=== PATIENT | male | born 1975 | race African-American/Black ===

== ENCOUNTER 2020-04-25 17:32 | Emergency (ER) | payer SELFPAY ==
[2020-04-25 17:46] VITALS: BP 141/87; PULSE 95; TEMP 98.6; BMI 28.8
[2020-04-25] MEDS ORDERED: KETOROLAC TROMETHAMINE 30 MG/1 ML VIAL IM ONE (18:37)
[2020-04-25] MEDS ORDERED: KETOROLAC TROMETHAMINE 30 MG/1 ML VIAL ONE (18:43)
== END 2020-04-25 19:41 | disposition home or self-care (01) ==
LOC: JERFT 17:32
PROC: 3E023GC Introduction of Other Therapeutic Substance into Muscle, Percutaneous Approach (ICD-10-PCS; principal; 2020-04-25)
DX: M25.561 Pain in right knee (principal)
CPT/HCPCS: 73562-TC-RT-FY; 99284-25

== ENCOUNTER 2020-11-14 12:04 | Emergency (ER) | payer OTHER ==
[2020-11-14 12:17] VITALS: BP 133/87; PULSE 87; TEMP 98.9
[2020-11-14] MEDS ORDERED: IBUPROFEN 400 MG TABLET (FP) PO ONE ×2 (13:32→13:38)
== END 2020-11-14 14:08 | disposition home or self-care (01) ==
LOC: JERFT 12:04 → JER 12:04 → JERFT 14:08
DX: S93.602A Unspecified sprain of left foot, initial encounter (principal)
CPT/HCPCS: 73610-TC-LT-FY; 73630-TC-LT; 99283-25

== ENCOUNTER 2022-11-05 11:21 | Emergency (ER) | payer OTHER ==
[2022-11-05 11:26] VITALS: PULSE 58; RESP 18; TEMP 98.2; BMI 31.4
[2022-11-05] MEDS ORDERED: KETOROLAC TROMETHAMINE 15 MG/ML VIAL IM ONE (12:48)
[2022-11-05] MEDS ORDERED: KETOROLAC TROMETHAMINE 30 MG/1 ML VIAL ONE (12:57)
[2022-11-05 13:26] LABS: BASO % 0.8 % (0-2.0); EOS % 1.1 % (0-4.5); HEMATOCRIT 41.8 % (35.4-49); HEMOGLOBIN 13.2 GM/dL (11.7-16.9); LYMPH % 16.1 % (8-40); MCH 29.7 pg (25.7-33.7); MCHC 31.5 g/dl (32.0-35.9); MEAN CELL VOLUME 94.2 fl (80-96); MEAN PLT VOLUME 9.6 fl (7.5-11.1); MONO % 11.4 % (3.8-10.2); NEUT % 70.6 % (42.8-82.8); PLATELET COUNT 176 10^3/uL (134-434); RBC 4.43 M/mm3 (4.00-5.60); RDW 13.4 % (11.9-15.9); WHITE BLOOD COUNT 9.6 K/mm3 (4.0-10.0)
[2022-11-05 13:47] LABS: POTASSIUM 4.4 mmol/L (3.5-5.1)
[2022-11-05 13:50] LABS: CALCIUM 9.2 mg/dL (8.5-10.1)
[2022-11-05 13:51] LABS: ALBUMIN 3.8 g/dl (3.4-5.0); BLOOD UREA NITROGEN 10.2 mg/dL (7-18)
[2022-11-05 13:55] LABS: TOT PROT 7.4 g/dl (6.4-8.2)
[2022-11-05 13:56] LABS: BILIRUBIN,TOTAL 0.8 mg/dL (0.2-1)
[2022-11-05 14:51] LABS: CRYSTALS,SYNOVIAL FLUID NEGATIVE
[2022-11-05 14:58] LABS: BF WBC & OTHER NUCLEATED CELLS 31610 /mm3
[2022-11-05 15:48] LABS: BODY FLUID MONOCYTE 7 %
[2022-11-05 15:57] VITALS: BP 137/90
== END 2022-11-05 16:07 | disposition home or self-care (01) ==
LOC: JER 11:21
PROC: 3E0233Z Introduction of Anti-inflammatory into Muscle, Percutaneous Approach (ICD-10-PCS; principal; 2022-11-05)
DX: M25.561 Pain in right knee (principal); R22.41 Localized swelling, mass and lump, right lower limb; R07.89 Other chest pain; M06.4 Inflammatory polyarthropathy
CPT/HCPCS: 36415; 71045-TC-FY; 73562-TC-RT-FY; 80053; 83615; 84484; 84560; 85025; 85651; 86140; 86618; 87070; 87075; 87205; 89060; 93005; 93010; 99285-25

== ENCOUNTER 2023-02-14 12:15 | Emergency (ER) | payer OTHER ==
[2023-02-14 12:24] VITALS: BP 138/92; PULSE 88; RESP 16; TEMP 97.7; BMI 32.1
== END 2023-02-14 13:20 | disposition home or self-care (01) ==
LOC: JERFT 12:15
DX: H92.02 Otalgia, left ear (principal); R09.81 Nasal congestion; H61.22 Impacted cerumen, left ear
CPT/HCPCS: 99282-25